=== PATIENT | male | born 1995 | race Caucasian/White ===

== ENCOUNTER 2019-05-30 08:37 | Emergency (ER) | payer SELFPAY ==
[~2019-05-30] VITALS: Ht 182.9 cm; Wt 90.7 kg
--- NOTE | 2019-05-30 08:51 | NUR ---
ED Nurse Note: Pt walked in ERD from home c/o right foot pain with swelling and bruised left knee. Pt states he "missed a step and landed on the side of his right foot". Skin is intact, no open wounds noted.
--- NOTE | 2019-05-30 08:55 | NUR ---
ED Nurse Note: ERMD at bedside
--- NOTE | 2019-05-30 08:58 | Emergency Room Report ---
History of Present Illness General Chief Complaint: Lower Extremity Injury Source: Patient Present Illness HPI Patient is a 23-year-old male presents after increased right foot pain. Patient reports having a fall after missing a step descending stairs last night. Injury occurred approximately 9 PM. He reports of increased pain with ambulation as well as some numbness to the right foot. He denies any prior injuries. He reports having some injury to the left foot. He denies any other locations of pain. Denies any other injury.Reports having moderate pain to the foot. Allergies: Coded Allergies: No Known Allergies (Unverified , 05/30/19) Patient History Reviewed Nursing Documentation: PMH: Agreed; PSxH: Agreed Nursing Documentation-PMH Past Medical History: No Stated History Physical Exam Vital Signs Date Time Temp Pulse Resp B/P (MAP) Pulse Ox O2 Delivery O2 Flow Rate FiO2 05/30/19 08:40 97.7 82 16 123/79 (94) 99 Room Air Sp02 EP Interpretation: reviewed, normal General Appearance: normal inspection, well appearing, no apparent distress, alert, GCS 15, non-toxic Head: atraumatic ENT: normal ENT inspection, hearing grossly normal, normal voice Neck: normal inspection, full range of motion, supple, no bony tend Respiratory: normal inspection, lungs clear, normal breath sounds, no respiratory distress, no retraction, no wheezing Cardiovascular #1: regular rate, rhythm, no edema Gastrointestinal: normal inspection, normal bowel sounds, non tender, soft, no guarding, no hernia Genitourinary: no CVA tenderness Musculoskeletal: back normal, normal range of motion, other - swelling to right foot lateral near 4th digit Neurologic: normal inspection, alert, oriented x3, responsive, 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 Differential diagnosis include was not limited to fracture, contusion, sprain among others. Patient was noted to have some soft tissue swelling to the base of the fourth metatarsal. X-ray imaging interpreted by me showed nondisplaced metatarsal fracture which may be chronic. X-ray imaging read by radiology showed no acute fractures. Patient was placed in a posterior splint given prescription for pain medications. He is advised to follow-up with his primary care physician for recheck. He was advised touchdown weightbearing only.He was given crutches. Is advised to follow-up with orthopedics for recheck Last Vital Signs Date Time Temp Pulse Resp B/P (MAP) Pulse Ox O2 Delivery O2 Flow Rate FiO2 05/30/19 08:40 97.7 82 16 123/79 (94) 99 Room Air Status: improved Disposition: HOME, SELF-CARE Condition: Stable Scripts Hydrocodone Bit/Acetaminophen 5-325* (NORCO 5-325*) 1 Each Tablet 1 TAB ORAL Q6H PRN for For Pain, #20 TAB 0 Refills Prov: J Carlos Devlin MD 05/30/19 Ibuprofen* (MOTRIN*) 600 Mg Tablet 600 MG ORAL Q8H PRN for For Pain, #30 TAB 0 Refills Prov: J Carlos Devlin MD 05/30/19 J Carlos Devlin MD May 30, 2019 08:58
--- NOTE | 2019-05-30 09:03 | NUR ---
ED Nurse Note: xray at bedside
[2019-05-30] MEDS ORDERED: IBUPROFEN600 MG ORAL (09:18)
[2019-05-30] MEDS ORDERED: NORCO 5-325 TA1 EACH ORAL (09:18)
--- NOTE | 2019-05-30 09:31 | NUR ---
ED Nurse Note: cad technician at bedside for splint application.
[2019-05-30 09:50] VITALS: BP 122/75
--- NOTE | 2019-05-30 09:50 | NUR ---
ER DISCHARGE NOTE: Patient is cleared to be discharged per ERMD, pt is aox4, on room air, with stable vital signs. pt was given dc and prescription instructions, pt was able to verbalize understanding, pt id band removed. pt is able to ambulate with crutches. pt took all belongings.
--- NOTE | 2019-05-30 12:58 | Diagnostic Imaging Report ---
Indication: Foot Pain Comparison: None Findings: 3 views of the right foot were obtained. No acute fractures, malalignment, erosions or periostitis are identified. Impression: No acute findings.
== END 2019-05-30 09:50 | disposition home or self-care (01) ==
LOC: EMR 09:15
DX: S92.344A Nondisplaced fracture of fourth metatarsal bone, right foot, initial encounter for closed fracture (principal); W10.9XXA Fall (on) (from) unspecified stairs and steps, initial encounter; Y92.9 Unspecified place or not applicable
CPT/HCPCS: 29515; 99283